=== PATIENT | female | born 1980 | race Caucasian/White ===

== ENCOUNTER 2022-12-23 19:32 | Emergency (ER) | payer BC ==
[~2022-12-23] VITALS: Ht 175.2 cm; Wt 117.0 kg
== END 2022-12-23 21:14 | disposition home or self-care (01) ==
LOC: ED 19:32
DX: T63.441A Toxic effect of venom of bees, accidental (unintentional), initial encounter (principal); T78.40XA Allergy, unspecified, initial encounter; X58.XXXA Exposure to other specified factors, initial encounter; Y92.009 Unspecified place in unspecified non-institutional (private) residence as the place of occurrence of the external cause